=== PATIENT | female | born 1955 | race African-American/Black ===

== ENCOUNTER 2016-07-13 21:31 | Inpatient (IN) | payer MEDICARE, OTHER ==
--- NOTE | ~2016-07-13 | CR72 ---
[facility] A Service of [facility] RADIOLOGY TEXT RESULTS PATIENT: TERESITA MONACO LOCATION: CICCU3 CICCU3-22 : 57 UNIT #: [id number] AGE: [address]: Thien Tompkins MD SEX: F ORDER DR: [id number] [facility] [address] [facility] [address] [place], [place] [address] [id number] MR#: [id number] Acc #: [id number] NAME: TERESITA MONACO : 1955 SEX: F STUDY DATE/TIME: 07/13/2016 22:34 UNIT: CEDOF ROOM: 87279 STUDY DESCRIPTION: CR Chest Single View Portable Attending Physician: Katherin Velasquez M.D. Ordering Physician: Hellen Sarabia M.D. Primary Care Physician: No Primary Care Physician MEDICAL IMAGING REPORT This report is preliminary unless electronic signature is present EXAM Portable chest HISTORY 60-year-old female, shortness of air COMPARISON 10/02/2010 FINDINGS AP portable view of the chest demonstrates marked pulmonary inflation hyperlucency compatible with underlying emphysema. No acute airspace disease or consolidation. No effusions. Multiple parenchymal calcifications and hilar calcifications suggest old granulomas disease. Heart, mediastinum unremarkable. No pneumothorax. Dictated by... Ariel Baldwin M.D. THIS IS AN ELECTRONICALLY VERIFIED REPORT Ariel Baldwin M.D. at 07/15/2016 10:35 PM DANIELA/lamonte TD: 07/14/2016 05:52 JOB #: [id number] MEDICAL IMAGING REPORT Page 1 of 1 COPY
--- NOTE | ~2016-07-13 | US89 ---
[facility] A Service of [facility] RADIOLOGY TEXT RESULTS PATIENT: TERESITA MONACO [facility]-01 : 57 UNIT #: [id number] AGE: [address]: Thien Tompkins MD SEX: F ORDER DR: [id number] [facility] [address] [facility] [place], [place] [address] [id number] I MR#: [id number] Acc #: [id number] NAME: TERESITA MONACO : 1955 SEX: F STUDY DATE/TIME: 07/14/2016 4:41 UNIT: [facility] ROOM: [facility] STUDY DESCRIPTION: US Lower Ext Arterial Exam Attending Physician: Thien Tompkins M.D. Ordering Physician: Katherin Velasquez M.D. Primary Care Physician: No Primary Care Physician MEDICAL IMAGING REPORT This report is preliminary unless electronic signature is present STUDY Lower extremity ankle-brachial indices. DATE OF EXAM 07/14/2016 HISTORY Diabetes with bilateral lower extremity claudication and nail and hair trophic changes and left lower extremity ulcerations for 2 weeks. FINDINGS Brachial pressure is 150 mmHg on the right. Ankle pressure is nonocclusive in the right dorsalis pedis. Left ankle brachial index is 0.69 indicating at least moderate ischemia. Digital pressures are diminished in the feet bilaterally. IMPRESSION Nonocclusive right ankle pressure, left ankle brachial index about 0.69, indicating at least moderate ischemia. Digital pressure is diminished in the feet bilaterally suggesting additional small vessel disease. Dictated by... Manuel Garces M.D. THIS IS AN ELECTRONICALLY VERIFIED REPORT Manuel Garces M.D. at 07/16/2016 3:58 PM JASIEL/jtanner [facility] A Service of [facility] RADIOLOGY TEXT RESULTS PATIENT: TERESITA MONACO LOCATION: [facility] 338-01 : 57 UNIT #: [id number] AGE: [address]: Thien Tompkins MD SEX: F ORDER DR: TD: 07/14/2016 20:44 JOB #: [id number] MEDICAL IMAGING REPORT Page 1 of 1 COPY
--- NOTE | ~2016-07-13 | EKG ---
[id number] NAME: TERESITA MONACO MR#: [id number] SUMMARY Sinus tachycardia with rightward axis and low anterior forces likely related to lead placement. No prior ECG available. Dictated by...
--- NOTE | ~2016-07-13 | HP ---
Unit #: [id number] #: [id number] Patient: TERESITA MONACO [id number] [address] [place], [place] [address] [id number] I MR#: [id number] NAME: TERESITA MONACO ROOM: 72035 Age: 60 Sex: F Admission Date: 07/14/2016 : 1955 Attending Physician: Katherin Velasquez M.D. Primary Care Physician: No Primary Care Physician HISTORY AND PHYSICAL CHIEF COMPLAINT Respiratory failure. HISTORY This 60-year-old female with rheumatoid arthritis, COPD, hypertension, is admitted for respiratory failure. The patient, herself, is only a fair historian. Admits to feeling more short of breath recently. Her daughter told the ER physician that the patient had been turning up her home oxygen. She was brought to this emergency department last evening where her O2 saturation was 98% on 4L, but her initial ABG showed hypoxic, hypercapnic, acute on chronic respiratory failure. The patient currently is on BiPAP. Denies recent cough. She had seen her speedboat operator for a left foot infection and was given Keflex and Bactrim which she is having difficulty swallowing. She is complaining of quite a bit of pain in the left foot and left leg which does appear to be reddened with some open areas over the toes. In reviewing her medications, she is taking hydrocodone. Chest x-ray only shows COPD. PAST MEDICAL HISTORY 1. COPD, on home oxygen. 2. Hypertension. 3. Severe rheumatoid arthritis. 4. Esophageal meat impaction requiring EGD 09/2010. Small hiatal hernia, mild gastritis noted during that time. 5. C-spine surgery. ALLERGIES No known drug allergies. HOME MEDICATIONS 1. Advair 250/50, one puff b.i.d. 2. Albuterol nebulizer. 3. Keflex 500 mg q.i.d., prescribed four days ago. 4. Bactrim DS, one p.o. b.i.d., prescribed four days ago. Again, patient is having difficulty swallowing these pills. 5. [place] 10/325 q.4 hours as needed. 6. Spiriva one puff daily. FAMILY HISTORY Negative for GI disease. SOCIAL HISTORY Unit #: [id number] #: [id number] Patient: TERESITA MONACO The patient states that she lives alone. Was previously a smoker, now smokes occasionally. Does not drink alcohol. REVIEW OF SYSTEMS Difficult to obtain as patient has BiPAP in place. PHYSICAL EXAMINATION GENERAL APPEARANCE: Very thin 60-year-old female who looks older than stated age. VITAL SIGNS: Temperature 98.2, pulse 93, respirations 23, blood pressure 156/77. O2 saturation currently is 99% on FIO2 of 40% on BiPAP. HEENT: Eyes PERRLA. Pharynx - difficult examining the oropharynx given BiPAP. NECK: Supple without adenopathy or thyromegaly. CHEST: Diminished breath sounds. CARDIAC: Normal S1 and S2 without definite murmur. ABDOMEN: Bowel sounds are present. No hepatosplenomegaly, tenderness or masses. EXTREMITIES: Notable for erythema of the distal lower left leg with open areas noted over the first and fourth toes. Foot looks to be cellulitic. Pedal pulses are diminished. Rheumatoid deformities noted over the hands and feet. NEUROLOGIC EXAM: The patient is awake, alert. She seems to be fairly oriented. She does have some asterixis on exam, has equal strength throughout. DIAGNOSTIC STUDIES LABORATORY: Hematocrit is 37.7, normal white count and platelet count. MCV is 104. SMA-7 - chloride 91, CO2 39. BNP is normal. Cardiac markers are negative. ABG - pH 7.285, pCO2 93, pO2 92.8 on 4L per nasal cannula. Repeat ABG - pH 7.31, pCO2 84, O2 saturation 111 on BiPAP 12/6, FIO2 40%, backup rate of 16. IMAGING: Chest x-ray - COPD. CARDIOVASCULAR: EKG - sinus tachycardia, rate 101. Qs noted in V1 and V2. ASSESSMENT 1. Chronic obstructive pulmonary disease exacerbation with acute on chronic hypercapnic/hypoxic respiratory failure. 2. Left foot and leg cellulitis, on Keflex and Bactrim: The patient apparently is having difficulty swallowing Bactrim. 3. History of dysphagia. 4. Rheumatoid arthritis with severe foot and hand deformities noted, previous C-spine surgery. 5. History of hypertension. PLANS 1. Steroids, Duo-Nebs, continue BiPAP and consult pulmonary. 2. Check venous Dopplers of the legs, give IV vancomycin and use Bactroban ointment. 3. DVT and gastritis prophylaxis. Unit #: [id number] #: [id number] Patient: TERESITA MONACO 4. IV fluids and supportive treatment. 5. Hold narcotics while acutely ill. 6. Will ask for a Bonilla catheter placed and obtain UA, urine C and S. 7. Repeat labs in the morning. Critical care time spent in evaluating this patient was 35 minutes. Dictated by Katherin Velasquez M.D. AML/df TD: 07/14/2016 05:22 JOB #: [id number] HISTORY AND PHYSICAL Page 1 of 1 X Katherin Velasquez MD X HISTORY AND PHYSICAL
--- NOTE | ~2016-07-13 | FU ---
[facility] Nutrition Therapy DATE: 07/17/16 Patient: TERESITA MONACO Physician: GIL Address: [address] [place] [address] Room/Bed: [address] [place] [address], Zip: [place] [address] Admit Date: 07/14/16 Date of : 57 Height: 5 2 Weight: 72 32.8 NUTRITION MONITORING/FOLLOW-UP: Reason: Nutrition follow up Anthropometrics: Ht: 62" Adm wt: 32.3 kg BMI: 13.0 IBW: 50 kg, 65% IBW Labs: Cl- 96 Alb 3.1 Meds: Lipitor, protonix I&O's: 1750/1302, last BM 07/16 Skin: Open areas left foot Dry, flaky skin generalized Edema: none noted Estimated Nutrition Needs: Increased due to low body weight Diet: Regular Assessment: Chart reviewed, events noted. RD spoke with the pt at bedside. Pt reports improvement in appetite and PO intake. Pt is reportedly consuming 50% of meals and 100% of Ensure supplement once or twice daily. Pt reports that if she received more seasoning, she would eat more. Pt states that she like the Ensure shakes, and asked about their benefits. RD explained the benefits of Ensure, encouraging the pt to consume at least two per day. RD also suggested smaller, more frequent meals. RD observed pt tray in room, which was consistent with her report of 50% intake. Please see recommendations below. Dx: Inadequate protein-energy intake RT clinical condition AEB 50% intake of meals- IN PROGRESS Underweight RT PMH, poor intake AEB BMI 13.0, 65% IBW- ACTIVE Intervention: 1. Regular diet 2. 6 small meals 3. Ensure TID Monitoring, Evaluation and Goals: 1. PO intake; consume >50% of meals- IN PROGRESS, NOT YET MET 2. Weight; promote gradual weight gain towards healthy BMI- IN PROGRESS (+0.5 kg) [facility] Nutrition Therapy DATE: 07/17/16 Patient: TERESITA MONACO Physician: GIL Address: [address] [place] [address] Room/Bed: [address] [place] [address], Zip: [place] [address] Admit Date: 07/14/16 Date of : [birth year] Height: 5 2 Weight: 72 32.8 3. Skin; promote wound healing- IN PROGRESS Recommendations: 1. Continue regular diet as tolerated, adding 6 small meals to promote increased intake of meals. 2. Ensure chocolate TID- continue. 3. Appreciate staff and family encouraging adequate intake of meals and Ensure supplements. Status: Pt is at mild-moderate nutritional risk. RD will continue to follow up. Respectfully, CHAPIS AGUILAR RD, LD Food and Nutritional Services [facility] cc: client file
--- NOTE | ~2016-07-13 | TOC ---
Unit #: [id number] #: [id number] Patient: TERESITA MONACO [id number] [address] [place], [place] [address] [id number] I MR#: [id number] NAME: TERESITA MONACO ROOM: 338 Age: 60 Sex: F Admission Date: 07/14/2016 : 1955 Attending Physician: Thien Tompikns M.D. Primary Care Physician: No Primary Care Physician TRANSFER OF CARE SUMMARY CHIEF COMPLAINT Shortness of breath. ADMITTING DIAGNOSIS Acute hypoxic respiratory failure. FURTHER DIAGNOSES 1. Ulcer on the left foot. 2. Peripheral vascular disease status post "AIF." CONSULTANTS 1. Dr. Licea. 2. Dr. Kael Brewster with vascular surgery. HISTORY OF PRESENTING ILLNESS The patient is a 60-year-old lady who is very thin. Was brought to the emergency room initially with acute hypoxic respiratory failure. She required BiPAP. She was initially in the ICU. We moved her out of the ICU yesterday. She had an ulcer on the left foot with poor blood supply. We consulted vascular surgery. They are on board. She is doing clinically better from the time of admission. She requires rehab placement per PT and OT recommendations. I spoke with the egg caser, and we are working on trying to get placement for her at this point. Kindly note a final discharge summary will be dictated by me or my colleagues at the time of actual discharge. Dictated by... Sabrina Collins/ganesh TD: 07/17/2016 13:55 JOB #: [id number] Unit #: [id number] #: [id number] Patient: TERESITA MONACO TRANSFER OF CARE SUMMARY Page 1 of 1 X X TRANSFER OF CARE SUMMARY
--- NOTE | ~2016-07-13 | A ---
[facility] Nutrition Therapy DATE: 07/14/16 Patient: TERESITA MONACO Physician: GIL Address: [address] [facility] Room/Bed: [address], Zip: [place] [address] Admit Date: 07/14/16 Date of : [birth year] Height: 5 2 Weight: 71 32.5 NUTRITIONAL ASSESSMENT: REASON: Consult RE: low weight/poor nurition 60 yo female admitted for COPD exacerbation PMH: COPD, HTN, rheumatoid arthritis Anthropometrics: Ht: 5'2" Wt: 32.3 kg (71#) BMI: 13.0 IBW: 110#, 64.5% IBW Labs: Na+ 133, Cl- 90, Gluc 120 Meds: NaCl, Protonix, Solu-medrol, D5% I/O & Bowel function: none noted, last BM unknown Skin Integrity: Open areas (L foot), no edema noted Estimated Nutrition Needs: Increased d/t low weight and wound Assessment: Chart reviewed, events noted. Pt was brought to ER this am d/t COPD exacerbation. Per chart, wound care was consulted d/t L foot ulcer. Per RN, pt is on bipap PRN and nasal cannula when off bipap. Pt is on a regular diet. RD physician internist visited with pt, pt was lethargic during visit. Per RD physician internist, pt consumed 0% of lunch. Pt reported being too tired to eat. RD encouraged adequate protein and calorie intake d/t COPD and foor ulcer. RD encouraged Ensure, pt agreed. See recommendations below. Dx: Inadequate protein-energy intake RT clinical condition AEB consuming 0% of meal. -Underweight RT PMH, poor intake AEB 13.0 BMI, 64.5% IBW. Intervention: 1. Regular diet 2. Ensure TID Monitoring, Evaluation and Goals: 1. PO intake; consume >50% of meals and supplements 2. Weight; promote gradual weight gain towards healthy BMI 3. Skin; promote wound healing Recommendations: 1. Please order chocolate Ensure Enlive TID w/ meals. [facility] Nutrition Therapy DATE: 07/14/16 Patient: TERESITA MONACO Physician: GIL Address: [facility] Room/Bed: [address], Zip: [place] [address] Admit Date: 07/14/16 Date of : [birth year] Height: 5 2 Weight: 71 32.5 2. Appreciate family and staff to encourage adequate calorie and protein intake. 3. Consider adding MVI w/ minerals, 500 mg Vitamin C BID, and 50 mg Zinc x 10 days to promote wound healing. Pt is at a mod/severe nutritional risk. RD will f/u per protocol. Respectfully, Denice Husain, Site Operations Manager Octavia Melchor MS, RD, LD Food and Nutritional Services [facility] cc: client file
--- NOTE | ~2016-07-13 | OR ---
Unit #: [id number] #: [id number] Patient: TERESITA MONACO [id number] [address] [place], [place] [address] [id number] MR#: [id number] NAME: TERESITA MONACO ROOM: [facility] Date of Procedure: 07/17/2016 Admission Date: 07/14/2016 Surgeon: Kael Brewster M.D. : 1955 Attending Physician: Thien Tompkins M.D. OPERATIVE REPORT PROCEDURE PERFORMED 1. Ultrasound-guided access of femoral artery, right. 2. Left superficial femoral artery angioplasty (5 x 100 mm). INDICATIONS FOR PROCEDURE This is a 60-year-old female, who was admitted with COPD exacerbation. She reports a history of nonhealing wound of her left first toe for the past 1-1/2 weeks. Apparently, the daughter says that she dropped a can of tomatoes on her foot and has been trying to get the wound to heal on her own at home. She had ABIs, which demonstrated a left JIM of 0.69 of the posterior tibial, and only JIM of 0.3 of the left dorsalis pedis. The waveforms of the posterior tibial were biphasic, whereas the dorsalis pedis waveforms were flat. The digital pressure was 58, with a toe index of 0.39. On exam, she had a superficial wound along the dorsal aspect of her first toe. There was no erythema or drainage. It was painful for her. I talked to the patient about doing an angiogram. I discussed with her the risks and benefits of the procedure. The risks include, but are not limited to, access site bleeding, injury to the blood vessels, recurrence of disease, contrast-induced nephropathy, and need for further procedures. The primary benefit of the procedure would be to assess her arterial vasculature, and if there was a treatable disease, to open it up with a balloon or stent, so as to maximize her inflow and promote wound healing. She expressed understanding, and elected to proceed. I also discussed the above with her daughter. PREOPERATIVE DIAGNOSIS Atherosclerosis with ulceration. POSTOPERATIVE DIAGNOSIS Atherosclerosis with ulceration. DESCRIPTION OF PROCEDURE After informed consent was obtained, the patient was brought to the Interventional Radiology suite. The patient's pre-sedation history and examination revealed an ASA physical status of 3. She has fasted for at least 6 hours. She had denied any family history for adverse anesthetic or sedative reaction, she had dentures which were removed, normal neck mobility, and no other identified contraindication of sedation. Risks and benefits, and alternatives were discussed with the patient, who desired to proceed. The blood pressure, heart rate, and oxygen saturation monitors, constant Unit #: [id number] #: [id number] Patient: TERESITA MONACO nursing observation and direct attending supervision. The patient received a total of 1 mg of Versed, and 25 mg of fentanyl, achieving appropriate level of sedation. Total sedation time and llyo-eg-xhcu time was 90 minutes. The patient was subsequently observed with serial examinations until the return of pre-sedation mental status. The patient remained hemodynamically stable with normal oxygenation, saturations, and vital signs with no complications during the procedure or recovery. The patient's both groins were prepped and draped in standard fashion. Using fluoroscopy, I identified the lower third of the femoral head. I also used ultrasound to identify the femoral bifurcation, using ultrasound guidance, I infiltrated 1% lidocaine into the skin. The common femoral artery was very superficial in relation to her skin. Then using ultrasound, I accessed the femoral artery on the right side with a micro-needle, I advanced a micro Glidewire, and confirmed my position in iliac artery with fluoroscopy. I then exchanged out my micro-needle for a 4-Greenlandic micro-sheath catheter using Seldinger technique. I then advanced a starter wire up into the aorta, and exchanged out my micro-sheath catheter for 4-Greenlandic sheath. I then advanced the Omni Flush catheter up into the aorta and did an abdominal aortogram, 20 mL/sec for 20 mL total. This demonstrated widely patent right and left renal arteries. There was a patent inferior mesenteric artery. There was no significant aortoiliac disease. The iliac arteries on the right and left, did appear somewhat diseased, but there was no significant stenosis or obstruction. I then attempted to go up and over the aortic bifurcation with an Omni Flush catheter. There must have been some tortuosity at the aortic bifurcation, as my attempts were unsuccessful. I changed out to a Omni SOS catheter, and I was able to advance a stiff-angled Glidewire into the left external iliac artery, but was unable to advance the catheter any further beyond the left common iliac artery. I then exchanged out my Omni Flush catheter, for a 4-Greenlandic angled glide catheter, so we take the aortic bifurcation tortuosity more smoothly. The patient was complaining of some pain, and with my catheter engaged in the left common iliac artery, I shot a hand injection which demonstrated extravasation. I then pulled back my catheter with serial angiograms until I was back intraluminal in the left common iliac artery. I then exchanged out my stiff angled Glidewire for a floppy glidewire. I advanced my floppy Glidewire into the common femoral artery, and was then able to advance the stiff angled glide catheter into the common femoral artery as well. I performed the hand injection to confirm that I was still intraluminal in the left common femoral artery. I then exchanged out my floppy glidewire back to the stiff-angled Glidewire, and placed in the superficial femoral artery. I then exchanged out my glide catheter, and then the 5-Greenlandic sheath catheter, which had been placed with the Omni SOS catheter and advanced a 6-Greenlandic [place] Destination Sheath up and over, while it was visualized under fluoroscopy. This [place] Destination sheath was engaged in the left common femoral artery. I then performed a hand injections of the left lower extremity. This demonstrated no significant disease of the left common femoral artery bifurcation. The proximal aspect of the left superficial femoral artery was widely patent with no significant disease. At the mid/distal portion of the superficial femoral artery, there was a 90% stenosis, the posterior tibial artery was widely patent, the tibioperoneal trunk had some mild disease, but no significant stenosis or occlusion. The anterior tibial artery was occluded, with no runoff. The posterior tibial artery and peroneal artery both were widely patent, both with pedal runoff to the foot. Unit #: [id number] #: [id number] Patient: TERESITA MONACO At this point, I elected to treat the superficial femoral artery stenosis. I marked the lesion under roadmapping, and then it was able to advance my stiff-angled Glidewire into the popliteal artery. I then deployed a 5 x 100 mm Comer balloon, which was inflated to nominal pressure for 2 minutes. I then desufflated the balloon and shot completion angiogram, which demonstrated resolution of the stenosis. There was still a mild 20% recoil at the distal aspect of the lesion, but it was not flow limiting. I then performed more magnified views of the tibioperoneal trunk, which again did identify some mild disease, but again no significant stenosis or obstruction, and there was brisk flow down to the posterior tibial artery and peroneal artery. As a result, I elected to not treat this lesion. I then removed my stiff-angled Glidewire, and pulled back my [place] Destination Sheath over the wire. With the tip of the sheath in the left common iliac artery, I performed a right angled oblique view, to confirm that there was no active extravasation of the iliac arteries. This hand injection was performed, and it did not demonstrate any active extravasation. I then performed a right angled oblique view of the right common femoral artery to assess adequacy for percutaneous closure. It was a good stick, as a result I changed out my [place] Destination Sheath over the wire for a 6-Greenlandic regular sheath. I then deployed a Mynx device, however, because the patient was so skinny, the plug within the soft tissue was outside the skin. As a result, I removed the Mynx closure device, and held manual pressure for 20 minutes. The patient had received 3000 units of heparin when I placed a 6-Greenlandic Park [place] Destination Sheath. Approximately 50 minutes had transpired since then, and I gave the patient 10 units of protamine. There was no active bleeding from the right groin site after 20 minutes of manual pressure. Contrast used was 80 mL, fluoro time was 15.9 minutes. Total sedation time was 90 minutes. At the end of the case, all counts were correct and I was present for the entire duration of the procedure. ESTIMATED BLOOD LOSS 20 mL. FINDINGS 1. Patent bilateral renal arteries. 2. No significant aortic disease. 3. Mildly diffuse iliac artery disease bilaterally, but no significant occlusion or stenosis. 4. Widely patent left femoral bifurcation. 5. Superficial femoral artery was widely patent proximally, had a 90% stenosis at the midportion, with 50% stenosis proximally and distally to this lesion. 6. Popliteal artery was widely patent. 7. Anterior tibial artery highly stenotic at its takeoff from the popliteal artery, with chronic occlusion and no distal outflow or reconstitution. 8. Tibial peroneal trunk with mildly diffuse disease, but no significant stenosis or occlusion. 9. Posterior tibial artery widely patent with no significant disease and runoff to the plantars. 10. Peroneal artery widely patent with no significant disease with good Unit #: [id number] #: [id number] Patient: TERESITA MONACO pedal outflow. SPECIMENS None. COMPLICATIONS None. Dictated by... Sabrina Carney TD: 07/18/2016 04:10 JOB #: [id number] OPERATIVE REPORT Page 1 of 1 X X PROCEDURE OPERATIVE NOTE
--- NOTE | ~2016-07-13 | CO ---
Unit #: [id number] #: [id number] Patient: TERESITA MONACO [id number] [address] [place], [place] [address] [id number] MR#: [id number] NAME: TERESITA MONACO ROOM: [facility] Age: 60 Sex: F Admission Date: 07/14/2016 : 1955 Attending Physician: Thien Tompkins M.D. Primary Care Physician: Barby Primary Care Physician Consultation Date: 07/15/2016 CONSULTATION REPORT REASON FOR CONSULTATION Poor peripheral pulses. HISTORY OF PRESENT ILLNESS This is a 60-year-old female with a history of hypertension, rheumatoid arthritis and COPD on home oxygen, who was admitted to the ICU for COPD exacerbation and respiratory distress. She is also complaining of some left foot and leg pain. She states that she has had no history of with walking previously. She is not a very good historian so I am not sure how reliable her information is. She denies any history of leg infections, left wounds, or legs surgeries. She states that she has had a wound on her left first toe for the past week. It hurts when it "dries out." She states that she was scheduled to see a foot doctor, but was admitted to the hospital for her breathing issues. PAST MEDICAL HISTORY Hypertension, rheumatoid arthritis, COPD. PAST SURGICAL HISTORY None. ALLERGIES NKDA. MEDICATIONS Advair, albuterol, Jonancy, and Spiriva. FAMILY HISTORY Denies any known bleeding disorders, clotting disorders or aneurysms. SOCIAL HISTORY Reportedly lives alone. Current smoker. Denies any ETOH. REVIEW OF SYSTEMS CONSTITUTIONAL: No fevers. No chills. ENT: No ear pain, tinnitus or sore throat. RESPIRATIONS: Positive for shortness of breath. Positive cough. CARDIOVASCULAR: Denies any chest pain or palpitations. GI: Denies any nausea, vomiting or diarrhea. : Denies any hematuria. HEME: Denies any easy bruising. ENDOCRINE: Denies any excessive thirst or hunger. MUSCULOSKELETAL: Denies any back pain or neck pain. INTEGUMENTARY: Denies any rash or pruritus. Unit #: [id number] #: [id number] Patient: TERESITA MONACO PHYSICAL EXAMINATION VITALS: Temperature is 97.6, heart rate 112, blood pressure 120/86, respirations 20. Oxygen 100% on 4 L. CONSTITUTIONAL: Well appearing, but frail, looks much older than her stated age. HEENT: Eyes, no scleral icterus. NECK: No JVD or carotid bruit. LYMPH: No lymphadenopathy in his neck or groins. CARDIOVASCULAR: Tachycardic. PULSE: 2+ femoral pulses bilaterally. Monophasic DP and PT pulses bilaterally. RESPIRATIONS: Nonlabored. GI: Soft, nontender, nondistended. SKIN: Ulceration of the left first toe approximately 3 x 2 cm, dry, no erythema, no drainage. PSYCH: Normal mood and affect. DIAGNOSTIC STUDIES LABORATORY DATA: WBC 6.0, hematocrit 33.8, platelets 139, sodium 136, potassium 4.0, chloride 94, CO2 36, BUN 13, creatinine 0.6, glucose 96. IMAGING STUDIES: JIM - DP cannot be obtained, posterior tibial pressure 114, ankle-brachial index 0.76. Left dorsalis pedis pressure 57, ankle-brachial index 0.38, posterior tibial pressure 104, JIM 0.69, left digital pressure 58, with a toe index of 0.39. Bilateral lower extremity venous duplex demonstrated no evidence of a DVT. ASSESSMENT 60-year-old female with atherosclerosis with ulcerations of the left first toe. It is hard to get a good history from her, whether or not she has rest pain versus claudication versus just a nonhealing ulceration. It appears that she does have peripheral vascular disease, with diminished circulation based on her ABIs. Her ABIs are consistent with moderate arterial insufficiency. Given this finding in the setting of a nonhealing wound, I do think she would benefit from a left leg angiogram, for evaluation, and possible intervention. I will attempt to schedule this for Wednesday, assuming that she is otherwise stable with her other medical issues. In terms of medication she also should probably be started on aspirin, as well as Lipitor. Aspirin for antiplatelet therapy, and Plavix for LDL control. Dictated by... Kael Brewster M.D. Landon TD: 07/15/2016 12:36 JOB #: [id number] Unit #: [id number] #: [id number] Patient: TERESITA MONAOC CONSULTATION REPORT Page 1 of 1 X X CONSULTATION REPORT
--- NOTE | ~2016-07-13 | EKG ---
PATIENT: TERESITA MONACO UNIT #: [id number] Ventricular Rate: 101 BPM Atrial Rate: 101 BPM P-R Interval: 144 ms QRS Duration: 74 ms Q-T Interval: 350 ms QTC Calculation(Bezet): 453 ms P Ruby: 88 degrees Calculated R Ruby: 93 degrees Calculated T Ruby: 55 degrees Diagnosis Line: SINUS TACHYCARDIA WITH RIGHTWARD AXIS AND LOW Diagnosis Line: ANTERIOR FORCES LIKELY RELATED TO LEAD PLACEMENT. Diagnosis Line: NO PRIOR ECG AVAILABLE. Diagnosis Line: Confirmed by GIOVANI BOLES MD ([id number]), video tape editor Diagnosis Line: SARA PARKINSON ([id number]) on 07/16/2016 8:27:19 AM INTERPRETING MD: ELVI GONZALEZ
--- NOTE | ~2016-07-13 | CT57 ---
[facility] A Service of [facility] RADIOLOGY TEXT RESULTS PATIENT: TERESITA MONACO LOCATION: [address] : [birth year] UNIT #: [id number] AGE: [address]: Thien Tompkins MD SEX: F ORDER DR: [id number] [place] [id number] [facility]. [place], [place] [address] [id number] I MR#: [id number] Acc #: [id number] NAME: TERESITA MONACO : 1955 SEX: F STUDY DATE/TIME: 07/14/2016 14:33 UNIT: [facility] ROOM: [facility] STUDY DESCRIPTION: CT Chest Wo Cont Attending Physician: Thien Tompkins M.D. Ordering Physician: Rosalee Licea M.D. Primary Care Physician: No Primary Care Physician MEDICAL IMAGING REPORT This report is preliminary unless electronic signature is present EXAM CT chest without contrast. HISTORY Shortness of air since yesterday. Acute CHF. TECHNIQUE This CT exam was performed with one or more of the following radiation dose reduction techniques: automatic exposure control, adjustment of mA and/or kV according to patient size, and iterative reconstruction. FINDINGS CT chest without contrast demonstrates severe bilateral emphysema throughout both lungs. Mild scattered linear fibrotic scarring bilaterally. Multiple small calcified granulomas in both lungs. No airspace infiltrates. No pleural effusions. Incidental calcified bilateral hilar nodes. No adenopathy. Normal caliber thoracic aorta. IMPRESSION 1. Advanced bilateral emphysema. 2. No evidence of active disease in the lungs. 3. Multiple incidental calcified granulomas in both lungs and incidental calcified bilateral hilar nodes. Dictated by... Alex Duran M.D. THIS IS AN ELECTRONICALLY VERIFIED REPORT Alex Duran M.D. at 07/14/2016 5:16 PM DFL/joselyn [facility] A Service of [facility] RADIOLOGY TEXT RESULTS PATIENT: TERESITA MONACO LOCATION: [address] : [birth year] UNIT #: [id number] AGE: [address]: Thien Tompkins MD SEX: F ORDER DR: TD: 07/14/2016 17:04 JOB #: [id number] MEDICAL IMAGING REPORT Page 1 of 1 COPY
--- NOTE | ~2016-07-13 | DS ---
Unit #: [id number] #: [id number] Patient: TERESITA MONACO [id number] [address] [place], [place] [address] [id number] I MR#: [id number] NAME: TERESITA MONACO ROOM: 338 Age: 60 Sex: F Admission Date: 07/14/2016 : 1955 Discharge Date: 07/20/2016 Attending Physician: Thien Tompkins M.D. Primary Care Physician: No Primary Care Physician DISCHARGE SUMMARY NOTE: Kindly note I did an interim discharge summary on the 12. This is an addendum to the discharge summary. ADDENDUM The patient is doing clinically better, and I spoke with the correctional counselor/case manager. She does have a bed for her in rehab on the third floor, and she will arrange for her discharge today. PHYSICAL EXAMINATION ON THE DAY OF DISCHARGE VITAL SIGNS: Temperature 98.1, pulse rate 85, respirations 16, blood pressure 99/61. GENERAL: The patient is thin, alert, oriented x3, lying in bed, no acute distress. HEENT: Normocephalic, atraumatic. No icterus. PERRLA. Extraocular muscles intact. CHEST: Bilateral equal air entry. Clear to auscultation. ABDOMEN: Soft. LOWER EXTREMITIES: Small ulcer on the left foot. Poor peripheral pulses. DISCHARGE MEDICATIONS 1. Medrol Dosepak. 2. Albuterol inhalation q.6 p.r.n. shortness of breath, 3 mL nebulization q.4 p.r.n. shortness of breath. 3. Tylenol p.r.n. 4. Bactroban to be applied topically on the feet b.i.d. 5. Spiriva 18 mcg daily. 6. Heparin 5,000 units t.i.d. 7. Dulera 200 mcg/5 mcg inhalation 2 puffs b.i.d. 8. Tenormin 25 mg daily. 9. Atrac-Tain cream to be applied topically b.i.d. 10. Lipitor 20 mg at bedtime. 11. Aspirin 81 mg daily. 12. Naproxen 220 mg p.o. b.i.d. p.r.n. pain. 13. Tramadol 50 mg q.6 p.r.n. pain. 14. Protonix 40 mg daily. 15. Baclofen 10 mg t.i.d. 16. Doxycycline 100 mg p.o. for 3 more days. 17. Medrol Dosepak. FOLLOWUP She is instructed to follow with her primary care and with pulmonary in 1-2 weeks. NOTE: Total time spent in her care - 35 minutes. Unit #: [id number] #: [id number] Patient: TERESITA MONACO Dictated by... Sabrina Collins/ganesh TD: 07/20/2016 12:35 JOB #: [id number] DISCHARGE SUMMARY Page 1 of 1 X X DISCHARGE SUMMARY
--- NOTE | ~2016-07-13 | US84 ---
[id number] [facility] [address] [facility]. [place], [place] [address] [id number] I MR#: [id number] Acc #: [id number] NAME: TERESITA MONACO : 1955 SEX: F STUDY DATE/TIME: 07/14/2016 10:05 UNIT: [facility] ROOM: [facility] STUDY DESCRIPTION: US LE Veins Complete Chencho Stdy Attending Physician: Thien Tompkins M.D. Ordering Physician: Katherin Velasquez M.D. Primary Care Physician: No Primary Care Physician MEDICAL IMAGING REPORT This report is preliminary unless electronic signature is present EXAM Bilateral leg vein Doppler, 07/14/2016. INDICATIONS Bilateral leg pain for 1 week. TECHNIQUE Venous ultrasound examination of both lower extremities was performed using grayscale, spectral Doppler and color flow Doppler imaging. FINDINGS The examination is negative. There is no evidence of deep venous thrombus from the groin to the lower calf bilaterally. Visualized greater saphenous veins are also patent. IMPRESSION Negative examination. No evidence of lower extremity deep venous thrombosis. Dictated by... Brennon Cardenas Jr., M.D. THIS IS AN ELECTRONICALLY VERIFIED REPORT Brennon Cardenas Jr., M.D. at 07/14/2016 4:48 PM KALEB/luis TD: 07/14/2016 11:28 JOB #: [id number] MEDICAL IMAGING REPORT Page 1 of 1 COPY
--- NOTE | ~2016-07-13 | CO ---
Unit #: [id number] #: [id number] Patient: TERESITA MONACO [id number] [address] [place], [place] [address] [id number] I MR#: [id number] NAME: TERESITA MONACO ROOM: [facility] Age: 60 Sex: F Admission Date: 07/14/2016 : 1955 Attending Physician: Thien Tompkins M.D. Primary Care Physician: No Primary Care Physician CONSULTATION REPORT REASON FOR CONSULTATION Critical care management. CHIEF COMPLAINT Shortness of breath. HISTORY OF PRESENT ILLNESS A 60-year-old female with past medical history of rheumatoid arthritis, COPD, hypertension admitted with a complaint of cough, shortness of breath and was found to be in respiratory failure. I am seeing the patient at bedside currently. Denies any headache, blurry vision. No chest pain. REVIEW OF SYSTEMS Positive for pallor. No edema. No cyanosis or jaundice. PAST MEDICAL HISTORY 1. COPD on home oxygen. 2. Hypertension. 3. C-spine surgery. ALLERGIES No known drug allergies. MEDICATIONS 1. Advair. 2. Albuterol. 3. Keflex. 4. Bactrim. 5. [place]shoe. 6. Spiriva. FAMILY HISTORY Negative for GI disease. PHYSICAL EXAMINATION VITAL SIGNS: Temperature 98, pulse 87, respirations 12, blood pressure 130/70. NEUROLOGIC: Awake, alert, oriented. No neuro deficit. HEENT: PERRLA plus 1. NECK: Supple. No JVD. CHEST: Bilateral air entry. Bilateral mild rhonchi. GASTROINTESTINAL: Nontender. Soft. Bowel sounds positive. EXTREMITIES: No edema. Unit #: [id number] #: [id number] Patient: TERESITA MONACO DIAGNOSTIC STUDIES Labs and imaging have been reviewed. ASSESSMENT 1. Acute hypoxic hypercapnic respiratory failure. 2. Acute exacerbation of chronic obstructive pulmonary disease for cellulitis and rheumatoid arthritis. PLAN Plan is to continue patient on IV steroids, BiPAP, bronchodilator, IV antibiotics, gastrointestinal and deep venous thrombosis prophylaxis, wound care. Patient will be closely monitored. Please see orders for detailed plan. Thank you very much for this consultation. Dictated by... Sabrina Mcduffie TD: 07/15/2016 16:18 JOB #: [id number] CONSULTATION REPORT Page 1 of 1 X Rosalee Licea MD CONSULTATION REPORT
--- NOTE | ~2016-07-13 | CR72 ---
[facility] A Service of [facility] RADIOLOGY TEXT RESULTS PATIENT: TERESITA MONACO LOCATION: [address] : [birth year] UNIT #: [id number] AGE: [address]: Thien Tompkins MD SEX: F ORDER DR: [id number] [facility] [address] [facility]. [place], [place] [address] [id number] I MR#: [id number] Acc #: [id number] NAME: TERESITA MONACO : 1955 SEX: F STUDY DATE/TIME: 07/15/2016 4:17 UNIT: [facility] ROOM: [facility] STUDY DESCRIPTION: CR Chest Single View Portable Attending Physician: Thien Tompkins M.D. Ordering Physician: Rosalee Licea M.D. Primary Care Physician: Primary Care Physician No MEDICAL IMAGING REPORT This report is preliminary unless electronic signature is present EXAM Portable chest HISTORY Respiratory failure, left foot infection. History of RA. COMPARISON 07/13/2016 FINDINGS Portable view of the chest demonstrates pulmonary hyperinflation with hyperlucency particularly in the lung apices compatible with underlying emphysema. Scattered parenchymal calcifications compatible old granulomatous disease. No acute airspace disease or consolidation. No effusions. Heart and mediastinum unremarkable. No pneumothorax. Dictated by... Ariel Baldwin M.D. THIS IS AN ELECTRONICALLY VERIFIED REPORT Ariel Baldwin M.D. at 07/15/2016 10:33 PM DANIELA/jayme TD: 07/15/2016 05:20 JOB #: [id number] MEDICAL IMAGING REPORT Page 1 of 1 COPY
[~2016-07-13 21:31] MED LIST: DICLOFENAC PO; VICODIN 5/1 TAB 5/50 PO; ZANAFLEX4 M1 PO
[2016-07-13 22:52] LABS: BASOPHIL% 0.6 % (0-2.5); EOSINOPHIL% 0.7 % (0.0-7.0); HEMATOCRIT 37.7 % (35.0-45.0); HEMOGLOBIN 11.9 gm/dL (12.0-16.0); LYMPHOCYTE# 0.7 X10e3 (1.0-3.5); LYMPHOCYTE% 12.8 % (17.0-45.0); MEAN CELL VOLUME 104.1 FL (83-96); MEAN CORPUSCULAR HEMOGLOBIN 32.8 PG (28-34); MEAN CORPUSCULAR HGB CONC 31.6 g/dL (30-36); MEAN PLATELET VOLUME 9.4 FL (6.5-11.5); MONOCYTE# 0.4 X10e3 (0-1.0); MONOCYTE% 7.6 % (3.0-12.0); NEUTROPHIL# 4.1 X10e3 (1.5-7.1); NEUTROPHIL% 78.3 % (40-75); PLATELET COUNT 153 X10e3 (140-420); RED BLOOD COUNT 3.62 X10e (3.90-5.30); RED CELL DISTRIBUTION WIDTH 12.6 % (11.0-15.5); WHITE BLOOD COUNT 5.2 X10e3 (4.0-10.5)
[2016-07-13 22:54] LABS: DIFF IND NO
[2016-07-13 22:56] LABS: POC - CKMB 11.8 ng/mL (0.0-7.9); POC - TROPONIN <0.05 ng/mL (<=0.05)
[2016-07-13 23:13] LABS: BUN/CREATININE RATIO 18.33; CALCIUM SERUM 9.2 mg/dL (8.4-10.2); CREATININE SERUM 0.6 mg/dL (0.6-1.4); GLOM FILT RATE Estimated 115.6 mL/min (>60); POTASSIUM 4.7 mmol/L (3.5-5.1)
[2016-07-13 23:56] LABS: ARTERIAL BLD GAS O2 SATURATION 95.7 % (90.0-100.0); ARTERIAL BLOOD GAS CARBOXY HB 0.5 %sat (0.0-9.0); ARTERIAL BLOOD GAS HCO3 44.2 mmol/L; ARTERIAL BLOOD GAS MET HB 0.8 %sat (0.0-2.0); ARTERIAL BLOOD GAS PO2 92.8 mmHg (80.0-100); ARTERIAL BLOOD GAS pH 7.285 (7.350-7.450)
[2016-07-13 23:59] LABS: ARTERIAL BLOOD GAS PCO2 92.9 mmHg (35.0-45.0)
[2016-07-14] LABS: ARTERIAL BLOOD GAS ALLEN TEST NORMAL; ARTERIAL BLOOD GAS ART SITE RIGHT RADIAL; ARTERIAL BLOOD GAS DELIVERY NASAL CANNULA; ARTERIAL DRAW? YES
[2016-07-14 01:45] LABS: ARTERIAL BLD GAS O2 SATURATION 96.3 % (90.0-100.0); ARTERIAL BLOOD GAS CARBOXY HB 0.6 %sat (0.0-9.0); ARTERIAL BLOOD GAS HCO3 42.2 mmol/L; ARTERIAL BLOOD GAS MET HB 1.5 %sat (0.0-2.0); ARTERIAL BLOOD GAS pH 7.308 (7.350-7.450)
[2016-07-14 01:50] LABS: ARTERIAL BLOOD GAS ALLEN TEST NORMAL; ARTERIAL BLOOD GAS ART SITE RIGHT RADIAL; ARTERIAL BLOOD GAS PCO2 84.2 mmHg (35.0-45.0); ARTERIAL DRAW? YES
[2016-07-14 02:21] LABS: URINE SOURCE CLEAN CATCH
[2016-07-14 02:24] LABS: URINE APPEARANCE CLEAR; URINE BILIRUBIN NEG (NEG); URINE BLOOD NEG (NEG); URINE COLOR YELLOW; URINE GLUCOSE NEG (NEG); URINE KETONE NEG (NEG); URINE LEUKOCYTE ESTERASE NEG (NEG); URINE NITRATE NEG (NEG); URINE PH 6.5 (5-8); URINE PROTEIN NEG (NEG); URINE SPECIFIC GRAVITY 1.012 (1.003-1.035)
[2016-07-14 02:28] LABS: CULTURE INDICATED? NO
[2016-07-14 05:05] LABS: ARTERIAL BLD GAS O2 SATURATION 97.5 % (90.0-100.0); ARTERIAL BLOOD GAS CARBOXY HB 0.4 %sat (0.0-9.0); ARTERIAL BLOOD GAS HCO3 41.3 mmol/L; ARTERIAL BLOOD GAS pH 7.359 (7.350-7.450)
[2016-07-14 05:09] LABS: ARTERIAL BLOOD GAS ALLEN TEST NORMAL; ARTERIAL BLOOD GAS ART SITE RIGHT RADIAL; ARTERIAL BLOOD GAS PCO2 73.3 mmHg (35.0-45.0); ARTERIAL DRAW? YES
[2016-07-14 05:52] LABS: BASOPHIL% 0.1 % (0-2.5); HEMATOCRIT 32.2 % (35.0-45.0); HEMOGLOBIN 10.1 gm/dL (12.0-16.0); LYMPHOCYTE# 0.2 X10e3 (1.0-3.5); LYMPHOCYTE% 3.2 % (17.0-45.0); MEAN CELL VOLUME 103.1 FL (83-96); MEAN CORPUSCULAR HEMOGLOBIN 32.4 PG (28-34); MEAN CORPUSCULAR HGB CONC 31.4 g/dL (30-36); MEAN PLATELET VOLUME 9.5 FL (6.5-11.5); MONOCYTE# 0.1 X10e3 (0-1.0); MONOCYTE% 1.2 % (3.0-12.0); NEUTROPHIL# 5.7 X10e3 (1.5-7.1); NEUTROPHIL% 95.5 % (40-75); PLATELET COUNT 142 X10e3 (140-420); RED BLOOD COUNT 3.12 X10e (3.90-5.30); RED CELL DISTRIBUTION WIDTH 12.4 % (11.0-15.5)
[2016-07-14 05:55] LABS: DIFF IND NO
[2016-07-14 06:34] LABS: ALBUMIN SERUM 3.5 g/dL (3.5-5.0); BILIRUBIN,TOTAL 0.6 mg/dL (0.2-2.0); BUN/CREATININE RATIO 15.71; CALCIUM SERUM 8.8 mg/dL (8.4-10.2); CREATININE SERUM 0.7 mg/dL (0.6-1.4); GLOM FILT RATE Estimated 109.9 mL/min (>60); POTASSIUM 4.5 mmol/L (3.5-5.1); PROTEIN TOTAL SERUM 7.1 g/dL (6.0-8.3)
[2016-07-14] MEDS ORDERED: ADVAIR 250-501 EAC1 INH (09:42)
[2016-07-14] MEDS ORDERED: ALBUTEROL2.5 MG/3 M INH (09:43)
[2016-07-14] MEDS ORDERED: TENORMIN25 MG PO (09:43)
[2016-07-14] MEDS ORDERED: LIORESAL10 MG PO (09:44)
[2016-07-14] MEDS ORDERED: KEFLEX500 MG PO (09:45)
[2016-07-14] MEDS ORDERED: LORTAB 10-3251 EACH PO (09:45)
[2016-07-14] MEDS ORDERED: MELOXICAM7.5 MG PO (09:46)
[2016-07-14] MEDS ORDERED: SPIRIVA18 MCG INH (09:47)
[2016-07-14] MEDS ORDERED: ALEVE220 M1 PO (09:47)
[2016-07-14] MEDS ORDERED: ALBUTEROL17 GM INH (09:48)
[2016-07-14] MEDS ORDERED: SULFAMETHOXAZO1 EAC1 PO (09:48)
[2016-07-14 11:47] LABS: ARTERIAL BLD GAS O2 SATURATION 98.7 % (90.0-100.0); ARTERIAL BLOOD GAS CARBOXY HB 0.4 %sat (0.0-9.0); ARTERIAL BLOOD GAS MET HB 0.9 %sat (0.0-2.0); ARTERIAL BLOOD GAS pH 7.329 (7.350-7.450)
[2016-07-14 11:49] LABS: ARTERIAL BLOOD GAS ALLEN TEST NORMAL; ARTERIAL BLOOD GAS ART SITE RIGHT RADIAL; ARTERIAL BLOOD GAS DELIVERY NASAL CANNULA; ARTERIAL BLOOD GAS PCO2 81.9 mmHg (35.0-45.0); ARTERIAL DRAW? YES
[2016-07-15 04:08] LABS: ARTERIAL BLD GAS O2 SATURATION 92.5 % (90.0-100.0); ARTERIAL BLOOD GAS CARBOXY HB 0.8 %sat (0.0-9.0); ARTERIAL BLOOD GAS HCO3 39.7 mmol/L; ARTERIAL BLOOD GAS MET HB 0.7 %sat (0.0-2.0)
[2016-07-15 04:18] LABS: ARTERIAL BLOOD GAS ALLEN TEST NORMAL; ARTERIAL BLOOD GAS ART SITE RIGHT RADIAL; ARTERIAL BLOOD GAS DELIVERY NASAL CANNULA; ARTERIAL BLOOD GAS PCO2 61.3 mmHg (35.0-45.0); ARTERIAL BLOOD GAS PO2 63.2 mmHg (80.0-100); ARTERIAL DRAW? YES
[2016-07-15 05:30] LABS: BASOPHIL% 0.2 % (0-2.5); HEMATOCRIT 33.8 % (35.0-45.0); HEMOGLOBIN 10.7 gm/dL (12.0-16.0); LYMPHOCYTE# 0.8 X10e3 (1.0-3.5); LYMPHOCYTE% 13.8 % (17.0-45.0); MEAN CELL VOLUME 102.5 FL (83-96); MEAN CORPUSCULAR HEMOGLOBIN 32.3 PG (28-34); MEAN CORPUSCULAR HGB CONC 31.5 g/dL (30-36); MEAN PLATELET VOLUME 9.6 FL (6.5-11.5); MONOCYTE# 0.7 X10e3 (0-1.0); MONOCYTE% 11.4 % (3.0-12.0); NEUTROPHIL# 4.5 X10e3 (1.5-7.1); NEUTROPHIL% 74.6 % (40-75); PLATELET COUNT 139 X10e3 (140-420); RED BLOOD COUNT 3.29 X10e (3.90-5.30); RED CELL DISTRIBUTION WIDTH 12.3 % (11.0-15.5)
[2016-07-15 05:36] LABS: DIFF IND NO
[2016-07-15 06:31] LABS: ALBUMIN SERUM 3.1 g/dL (3.5-5.0); BILIRUBIN,TOTAL 0.4 mg/dL (0.2-2.0); BUN/CREATININE RATIO 21.66; CALCIUM SERUM 8.9 mg/dL (8.4-10.2); CREATININE SERUM 0.6 mg/dL (0.6-1.4); GLOM FILT RATE Estimated 115.6 mL/min (>60); PROTEIN TOTAL SERUM 6.9 g/dL (6.0-8.3)
[2016-07-16 05:14] LABS: HEMATOCRIT 35.9 % (35.0-45.0); HEMOGLOBIN 11.3 gm/dL (12.0-16.0); LYMPHOCYTE# 0.3 X10e3 (1.0-3.5); LYMPHOCYTE% 5.1 % (17.0-45.0); MEAN CORPUSCULAR HEMOGLOBIN 32.5 PG (28-34); MEAN CORPUSCULAR HGB CONC 31.5 g/dL (30-36); MEAN PLATELET VOLUME 9.8 FL (6.5-11.5); MONOCYTE# 0.3 X10e3 (0-1.0); MONOCYTE% 4.8 % (3.0-12.0); NEUTROPHIL# 5.4 X10e3 (1.5-7.1); NEUTROPHIL% 90.1 % (40-75); PLATELET COUNT 125 X10e3 (140-420); RED BLOOD COUNT 3.48 X10e (3.90-5.30); RED CELL DISTRIBUTION WIDTH 12.6 % (11.0-15.5)
[2016-07-16 05:23] LABS: DIFF IND NO
[2016-07-16 05:45] LABS: BILIRUBIN,TOTAL 0.4 mg/dL (0.2-2.0); CALCIUM SERUM 8.8 mg/dL (8.4-10.2); CREATININE SERUM 0.5 mg/dL (0.6-1.4); GLOM FILT RATE Estimated 122.8 mL/min (>60); POTASSIUM 3.9 mmol/L (3.5-5.1); PROTEIN TOTAL SERUM 6.7 g/dL (6.0-8.3)
[2016-07-17 06:15] LABS: BASOPHIL% 0.3 % (0-2.5); EOSINOPHIL% 0.1 % (0.0-7.0); HEMOGLOBIN 11.4 gm/dL (12.0-16.0); LYMPHOCYTE# 0.9 X10e3 (1.0-3.5); LYMPHOCYTE% 16.8 % (17.0-45.0); MEAN CELL VOLUME 102.7 FL (83-96); MEAN CORPUSCULAR HEMOGLOBIN 32.6 PG (28-34); MEAN CORPUSCULAR HGB CONC 31.8 g/dL (30-36); MEAN PLATELET VOLUME 9.7 FL (6.5-11.5); MONOCYTE# 0.3 X10e3 (0-1.0); MONOCYTE% 6.3 % (3.0-12.0); NEUTROPHIL# 4.1 X10e3 (1.5-7.1); NEUTROPHIL% 76.5 % (40-75); PLATELET COUNT 114 X10e3 (140-420); RED BLOOD COUNT 3.51 X10e (3.90-5.30); WHITE BLOOD COUNT 5.4 X10e3 (4.0-10.5)
[2016-07-17 06:17] LABS: DIFF IND NO
[2016-07-17 06:24] LABS: INR 1.1; PROTHROMBIN TIME (PATIENT) 11.4 SECONDS (9.6-11.5)
[2016-07-17 08:18] LABS: ALBUMIN SERUM 3.1 g/dL (3.5-5.0); BILIRUBIN,TOTAL 0.5 mg/dL (0.2-2.0); BUN/CREATININE RATIO 23.33; CALCIUM SERUM 8.8 mg/dL (8.4-10.2); CREATININE SERUM 0.6 mg/dL (0.6-1.4); GLOM FILT RATE Estimated 115.6 mL/min (>60); POTASSIUM 3.9 mmol/L (3.5-5.1); PROTEIN TOTAL SERUM 6.5 g/dL (6.0-8.3)
[2016-07-18 06:12] LABS: HEMATOCRIT 30.7 % (35.0-45.0); HEMOGLOBIN 9.8 gm/dL (12.0-16.0); MEAN CELL VOLUME 103.5 FL (83-96); MEAN CORPUSCULAR HEMOGLOBIN 33.1 PG (28-34); MEAN CORPUSCULAR HGB CONC 31.9 g/dL (30-36); MEAN PLATELET VOLUME 10.3 FL (6.5-11.5); RED BLOOD COUNT 2.96 X10e (3.90-5.30); RED CELL DISTRIBUTION WIDTH 12.8 % (11.0-15.5); WHITE BLOOD COUNT 5.5 X10e3 (4.0-10.5)
[2016-07-18 06:34] LABS: CALCIUM SERUM 8.4 mg/dL (8.4-10.2); CREATININE SERUM 0.5 mg/dL (0.6-1.4); GLOM FILT RATE Estimated 122.8 mL/min (>60); POTASSIUM 4.2 mmol/L (3.5-5.1)
[2016-07-20] MEDS ORDERED: PAIN & FEVER325 MG PO (16:12)
[2016-07-20] MEDS ORDERED: LIPITOR20 MG PO (16:13)
[2016-07-20] MEDS ORDERED: ASPIRIN81 M2 PO (16:15)
[2016-07-20] MEDS ORDERED: TRAMADOL HCL50 M1 PO (16:16)
[2016-07-20] MEDS ORDERED: PROTONIX PO (16:19)
[2016-07-20] MEDS ORDERED: DOXYCYCLINE HY100 M3 PO (16:26)
== END 2016-07-20 20:10 | DRG 166 ==
LOC: CED 21:31 → C3A PCU 07-14 02:00 → CEDOF 07-14 02:00 → CICCU3 07-14 02:00 → CEDOF 07-14 02:30 → CED 07-14 02:30 → CEDOF 07-14 07:20 → CICCU3 07-14 08:42 → C3A PCU 07-16 13:53
PROVIDERS: Internal Medicine; Nurse Practitioner; Student in an Organized Health Care Education/Training Program
PROC: B410YZZ Fluoroscopy of Abdominal Aorta using Other Contrast (ICD-10-PCS; principal; 2016-07-17)
PROC: 047L3ZZ Dilation of Left Femoral Artery, Percutaneous Approach (ICD-10-PCS; 2016-07-17)
PROC: B41FYZZ Fluoroscopy of Right Lower Extremity Arteries using Other Contrast (ICD-10-PCS; 2016-07-17)
DX: J96.22 Acute and chronic respiratory failure with hypercapnia (principal); E43 Unspecified severe protein-calorie malnutrition; Z99.81 Dependence on supplemental oxygen; J44.1 Chronic obstructive pulmonary disease with (acute) exacerbation; L03.90 Cellulitis, unspecified; Z68.1 Body mass index [BMI] 19.9 or less, adult; I10 Essential (primary) hypertension; M06.9 Rheumatoid arthritis, unspecified; J96.21 Acute and chronic respiratory failure with hypoxia; I70.25 Atherosclerosis of native arteries of other extremities with ulceration; L97.529 Non-pressure chronic ulcer of other part of left foot with unspecified severity
CPT/HCPCS: 36415; 36600; 71010; 71250; 75625; 75710; 80048; 80053; 80202; 81003; 82553; 82803; 83880; 84484; 85025; 85027; 85610; 85730; 87070; 93005; 93923; 93970; 94640; 94660; 94664; 94760; 94761; 97116; 97163; 97166; 97530; 97535; 99285; C1725; C1760; C1894; G8978-GP; G8979-GP; G8987-GO; G8988-GO; G8989-GO; J0360; J0696; J1644; J2250; J2720; J2920; J3010; J3370; Q9967

== ENCOUNTER 2016-10-17 19:17 | Inpatient (IN) | payer MEDICARE, OTHER ==
[~2016-10-17] VITALS: Ht 152.4 cm; Wt 33.1 kg
--- NOTE | ~2016-10-17 | CR72 ---
[facility] A Service of [facility] & [facility] RADIOLOGY TEXT RESULTS PATIENT: TERESITA MONACO LOCATION: [address]16 : [birth year] UNIT #: [id number] AGE: [address]: Jameson Meyer MD SEX: F ORDER DR: [id number] [facility] [address] [facility]. [place], [place] [address] [id number] I MR#: [id number] Acc #: [id number] NAME: TERESITA MONACO : 1955 SEX: F STUDY DATE/TIME: 10/17/2016 20:58 UNIT: [facility] ROOM: [facility] STUDY DESCRIPTION: CR Chest Single View Portable Attending Physician: Jameson Meyer M.D. Ordering Physician: Ed Jose Roberto Cutler M.D. Primary Care Physician: No Primary Care Physician MEDICAL IMAGING REPORT This report is preliminary unless electronic signature is present EXAM Single view chest. INDICATION Shortness of air. Altered mental status. TECHNIQUE Single portable AP view of the chest compared to 07/15/2016. FINDINGS The heart and mediastinal contours are normal. There is background COPD. No new pulmonary opacities. No pneumothorax. IMPRESSION Background COPD. No new findings. Dictated by... Ham Alaniz M.D. THIS IS AN ELECTRONICALLY VERIFIED REPORT Ham Alaniz M.D. at 10/18/2016 7:51 PM NICOLE/joselyn TD: 10/18/2016 19:04 JOB #: [id number] MEDICAL IMAGING REPORT Page 1 of 1 COPY
--- NOTE | ~2016-10-17 | CO ---
Unit #: [id number] #: [id number] Patient: TERESITA MONACO [id number] [address] [place], [place] [address] [id number] I MR#: [id number] NAME: TERESITA MONACO ROOM: 550 Age: 61 Sex: F Admission Date: 10/17/2016 : 1955 Attending Physician: Hilario Gordon M.D. Consultation Date: 10/21/2016 CONSULTATION REPORT REASON FOR CONSULTATION Peripheral vascular disease. HISTORY OF PRESENT ILLNESS This is a 61-year-old female, who was admitted back on 10/17, with a 4-day history of a fall, and COPD exacerbation. She is known to me for having undergone a left superficial femoral artery angioplasty back on 07/17/2016 for a nonhealing ulcer of her first toe. She was subsequently seen by Dr. Gray in the office in August and was reportedly doing well. That procedure in July at that time, she was noted to have a left JIM of 0.69 of the PT, 0.3 of the left DP, with digital pressure of 58 and a toe index of 0.39. She has not had subsequent followup ankle-brachial indices. The patient currently believes that her breathing is doing better. Per the nurse, she is pending discharge likely tomorrow. The patient states that she believes that the wound has continued to heal, she denies any erythema or drainage or significant pain to the toe. She does not have any claudication symptoms when she walks. She does notes at night, she does have some intense pins and needle sensation along the dorsal aspect of her foot. PAST MEDICAL HISTORY Includes COPD, on home O2; hypertension; severe rheumatoid arthritis; peripheral vascular disease; and dyslipidemia. PAST SURGICAL HISTORY Includes history of C-spine surgery. ALLERGIES No known drug allergies. FAMILY HISTORY Denies any known bleeding disorders, clotting disorders, or aneurysms. SOCIAL HISTORY Former heavy smoker, but has quit 2 to 3 months ago, denies any alcohol or illicit drugs. MEDICATIONS Advair Diskus, albuterol, Tenormin, Lortab, Meloxicam, Spiriva, Ventolin, Lipitor, aspirin, Protonix, and tramadol. REVIEW OF SYSTEMS CONSTITUTIONAL: Denies any fevers or chills. Unit #: [id number] #: [id number] Patient: TERESITA MONACO ENT: Denies any ear pain or tinnitus. RESPIRATIONS: Positive for shortness of breath. Positive for cough. CARDIOVASCULAR: Denies any chest pain or palpitations. GI: Denies any nausea, vomiting, or diarrhea. : Denies any hematuria. HEME: Denies any easy bruising. ENDOCRINE: Denies any excessive thirst or hunger. MUSCULOSKELETAL: Denies any back pain. Positive for neck pain as described above in surgical history. INTEGUMENTARY: Denies any rash or pruritus. PHYSICAL EXAMINATION VITAL SIGNS: Temperature is 98.1, heart rate is 76, blood pressure is 140/74, respirations 15, and 98% on 4 L of O2. CONSTITUTIONAL: Appears older than stated age, eyes no scleral icterus. NECK: No JVD or carotid bruit. LYMPHATICS: No lymphadenopathy in neck or groins. CARDIOVASCULAR: Regular rate and rhythm. VASCULAR: Pulse exam; 2+ femoral pulses. Left DP multiphasic, PT triphasic; right DP and PT, monophasic. RESPIRATIONS: Nonlabored respirations. GI: Soft. Nontender. Nondistended. SKIN: Left first toe dorsal aspect ulceration roughly 5 x 2.5 cm, shallow, no erythema, no drainage, with granulating base. PSYCH: Normal mood and affect. DIAGNOSTIC STUDIES LABORATORY STUDIES: WBC 11.0, hematocrit 35.6, and platelets 124. Sodium 138, potassium 3.8, chloride 95, CO2 is 37, BUN 14, creatinine 0.4, glucose 188, estimated GFR is 131.2. Sputum culture is negative from 10/20. ASSESSMENT AND PLAN A 61-year-old female, with a history of left superficial femoral artery angioplasty on 07/2016 for nonhealing ulcer of the left first toe. I cannot recall exactly the nature of the wound when I had seen it two months ago, though according to the patient, it is improving in overall size. It does not appear infected at this time, I do not believe there is any evidence of osteomyelitis. On exam, the wound appears healthy, and she has very strong DP and PT signals. It would be nice to obtain postprocedural ankle-brachial indices, to reassess her ABIs if there is significant improvement, as well as toe pressures. I reviewed her imaging from 07/2016. Her primary issue was mid superficial femoral artery stenosis. Her anterior tibial artery appeared occluded or diminutive, and showed two-vessel runoff predominantly of her peroneal and her posterior tibial arteries, with pedal outflow. So I have ordered segmental pressures with ABIs. I have also put in wound care instructions to keep the wound moist, rather than a wet-to-dry, with bacitracin, Telfa pad, and Kerlix. I have also asked that she be referred to the [facility] for a followup and monitoring of her left first toe ulceration. Lastly, I have placed podiatry consult for evaluation of her toenails, which appear overgrown and are curling in. Based on her ankle-brachial indices, she likely should be able to heal any podiatric procedure required. She can follow up with me in the office in four weeks, if she is discharged, but we will follow her while she is inpatient. Unit #: [id number] #: [id number] Patient: TERESITA MONACO Dictated by... Sabrina Carney TD: 10/22/2016 07:14 JOB #: [id number] CONSULTATION REPORT Page 1 of 1 X X CONSULTATION REPORT
--- NOTE | ~2016-10-17 | US89 ---
[facility] A Service of [facility] RADIOLOGY TEXT RESULTS PATIENT: TERESITA MONACO LOCATION: [facility] : 57 UNIT #: [id number] AGE: [address]: Hilario Gordon MD SEX: F ORDER DR: [id number] [facility] [address] [facility]. [place], [place] [address] [id number] I MR#: [id number] Acc #: [id number] NAME: TERESITA MONACO : 1955 SEX: F STUDY DATE/TIME: 10/21/2016 13:35 UNIT: [facility] ROOM: [facility] STUDY DESCRIPTION: US Lower Ext Arterial Exam Attending Physician: Hilario Gordon M.D. Ordering Physician: Ahs Cutler M.D. Primary Care Physician: No Primary Care Physician MEDICAL IMAGING REPORT This report is preliminary unless electronic signature is present EXAM Lower extremity arterial segmental pressures. DATE OF EXAMINATION 10/21/2016 HISTORY Claudication. FINDINGS The right brachial pressure is 159. The left brachial pressure was not measured. The right upper thigh pressure is 147, lower thigh 130, calf 109, dorsalis pedis 109, posterior tibial 110, and toe 67 for an ghpjr-ol-oavdmbis index of 0.69. Left upper thigh pressure is 168, lower thigh 151, calf 133, and dorsalis pedis 139, posterior tibial 139, and toe 85, for an tlisr-bi-tqprpbeh index of 0.87. Pulse volume recording tracings demonstrate dampening of the amplitude of the signal at the calf and ankle level on both sides. Doppler waveform analysis indicates a monophasic signal in the posterior tibial and dorsalis pedis arteries bilaterally. IMPRESSION Moderate ischemia of the right leg with an ekmku-mu-xflaerjb index of 0.69. There appears to be multilevel arterial occlusive disease involving the right leg. Mild ischemia of the left leg with an vabrs-vx-omhazpkn index of 0.87. There appears to be primarily tibial artery occlusive [facility] A Service [facility] RADIOLOGY TEXT RESULTS PATIENT: TERESITA MONACO LOCATION: [facility] : [birth year] UNIT #: [id number] AGE: [address]: Hilario Gordon MD SEX: F ORDER DR: disease involving the left leg. Dictated by... Meliton Lopez M.D. THIS IS AN ELECTRONICALLY VERIFIED REPORT Meliton Lopez M.D. at 10/22/2016 7:31 AM MARISABEL/jesus TD: 10/22/2016 00:00 JOB #: [id number] MEDICAL IMAGING REPORT Page 1 of 1 COPY
--- NOTE | ~2016-10-17 | CR72 ---
[facility] A Service of [facility] & [facility] RADIOLOGY TEXT RESULTS PATIENT: TERESITA MONACO LOCATION: [facility] 550- : [birth year] UNIT #: [id number] AGE: [address]: Hilario Gordon MD SEX: F ORDER DR: [id number] [facility] [address] [facility]. [place], [place] [address] [id number] I MR#: [id number] Acc #: [id number] NAME: TERESITA MONACO : 1955 SEX: F STUDY DATE/TIME: 10/19/2016 6:01 UNIT: [facility] ROOM: [facility] STUDY DESCRIPTION: CR Chest Single View Portable Attending Physician: Jameson Meyer M.D. Ordering Physician: Rosalee Licea M.D. Primary Care Physician: No Primary Care Physician MEDICAL IMAGING REPORT This report is preliminary unless electronic signature is present EXAM Portable chest HISTORY Respiratory failure, COPD exacerbation beginning 2 days ago, October 17. COMPARISON 10/17/2016 FINDINGS Portable view of the chest demonstrates marked pulmonary hyperinflation and hyperlucency compatible with underlying emphysema. No acute airspace disease or consolidation. No effusions. Heart and mediastinum unremarkable. AP window calcifications noted compatible with granulomatous disease. Calcifications seen over the left shoulder lateral to the greater tuberosity. May represent a component of calcific bursitis. No pneumothorax. Dictated by... Ariel Baldwin M.D. THIS IS AN ELECTRONICALLY VERIFIED REPORT Ariel Baldwin M.D. at 10/19/2016 4:47 PM DANIELA/sloan TD: 10/19/2016 08:27 JOB #: [id number] MEDICAL IMAGING REPORT Page 1 of 1 COPY
--- NOTE | ~2016-10-17 | HP ---
Unit #: [id number] #: [id number] Patient: TERESITA MONACO [id number] [address] [place], [place] [address] [id number] I MR#: [id number] NAME: TERESITA MONACO ROOM: [facility] Age: 61 Sex: F Admission Date: 10/17/2016 : 1955 Attending Physician: Jameson Meyer M.D. HISTORY AND PHYSICAL CHIEF COMPLAINT She said that while going to the restroom she stumbled in the bathroom and hit her forehead on the wall. HISTORY OF PRESENT ILLNESS This is a 61-year-old female with a past medical history of COPD, home oxygen dependent, hypertension, severe rheumatoid arthritis, peripheral vascular disease, status post left superficial femoral artery stent and angioplasty, small hiatal hernia, GERD, dyslipidemia, and history of left foot ulcer, brought to the emergency room with the chief complaint that she was going to the bathroom when she stumbled and hit her forehead on the wall. On further workup, she is having chronic shortness of breath. On workup in the ER, she was found to be with oxygen saturation of 97% on four liters, but eventually, on ABG she was found to be hypercapnic with CO2 of 93.7 and is being placed on BiPAP. She is currently on BiPAP. She is able to talk with me. (1) she is a very poor historian. She says she has been having some shortness of breath, but she denies cough and wheezing. PAST MEDICAL HISTORY 1. Chronic obstructive pulmonary disease, home oxygen dependent. 2. Hypertension. 3. Severe rheumatoid arthritis. 4. Esophageal meat impaction requiring EGD in 2010 which showed a small hiatal hernia and mild gastritis. 5. Peripheral vascular disease, status post left superficial femoral artery angioplasty on July 17, 2016. 6. Dyslipidemia. 7. Left foot ulcer. PAST SURGICAL HISTORY History of C-spine surgery. ALLERGIES No known drug allergies. FAMILY HISTORY Noncontributory. SOCIAL HISTORY She used to smoke and used to be a heavy smoker, but she said she quit two to three months ago. She does not drink alcohol. MEDICATIONS Unit #: [id number] #: [id number] Patient: TERESITA MONACO The nurse is currently calling the pharmacy to find the medications. Previous home medications were as follows: Advair Diskus 250/50, albuterol, Tenormin, Lortab, meloxicam, Spiriva, Ventolin, Lipitor, aspirin, Protonix, and tramadol. REVIEW OF SYSTEMS Negative except as in History of Present Illness. She is currently on BiPAP. PHYSICAL EXAMINATION GENERAL: A 61-year-old, very fragile lady who looks older than her age. CURRENT VITAL SIGNS: Temperature 98.1, heart rate 86, respiratory rate 16, and blood pressure 160/92. HEENT: Pupils equally reactive to light and accommodation. NECK: Supple. No JVD, no thyromegaly. LUNGS: Decreased air entry bilaterally with no rhonchi and no wheezing. HEART: S1 and S2, regular rate and rhythm. ABDOMEN: Soft, nontender, and nondistended. Bowel sounds positive. EXTREMITIES: No cyanosis, no clubbing, no edema. There are chronic changes on the feet. The toenails are big and curled. There is a positive chronic ulcer on the left great toe which seems to be chronic. Diminished pulses also. NEUROLOGIC: She is alert and awake. She is currently on BiPAP. Moving extremities. DIAGNOSTIC STUDIES LABORATORY: BNP is 62. Troponin less than 0.05. Sodium 142, potassium 4, chloride 92, CO2 of 44, glucose 100, BUN 9, and creatinine 0.4. ABG with pH of 7.312, O2 of 96, and CO2 of 93.7. ABG was done on 3 liters of oxygen. White count 3, hemoglobin 11, hematocrit 36, and platelets 150,000. IMAGING: Chest x-ray shows no infiltrate. CT head is pending at the time of dictation. ASSESSMENT AND PLAN 1. Acute hypercapnic respiratory failure. Continue BiPAP and to the ICU while on BiPAP. Ask Dr. Licea to evaluate. 2. Acute exacerbation of chronic obstructive pulmonary disease, oxygen dependent. Place on IV Solu-Medrol, DuoNebs, and IV Levaquin. 3. History of hypertension. 4. History of severe rheumatoid arthritis. 5. History of peripheral vascular disease with left superficial femoral artery angioplasty on July 17, 2016. 6. History of dyslipidemia. 7. History of small hiatal hernia/gastritis. 8. History of left foot ulcer. 9. Deep venous thrombosis prophylaxis. Will place the patient on Lovenox 30 mg subcutaneous daily. 1. Dictated by Sabrina Thorpe TD: 10/18/2016 15:22 JOB #: [id number] Unit #: [id number] #: [id number] Patient: TERESITA MONACO HISTORY AND PHYSICAL Page 1 of 1 X X HISTORY AND PHYSICAL
--- NOTE | ~2016-10-17 | CO ---
Unit #: [id number] #: [id number] Patient: TERESITA MONACO [id number] [address] [place], [place] [address] [id number] I MR#: [id number] NAME: TERESITA MONACO ROOM: [facility] Age: 61 Sex: F Admission Date: 10/17/2016 : 1955 Attending Physician: Jameson Meyer M.D. Primary Care Physician: Primary Care Physician No CONSULTATION REPORT REASON FOR CONSULTATION Critical care management. CHIEF COMPLAINT Shortness of breath. HISTORY OF PRESENT ILLNESS Edwqo-freg-aqa female with past medical history of rheumatoid arthritis, COPD on home oxygen, chronic respiratory failure who presents with the complaint of shortness of breath, increasing sputum production for last jbf-mo-vguvh days, symptoms getting worse, was found to be in acute hypoxic hypercapnic respiratory failure, started on BiPAP, currently on BiPAP, has been doing well, resting well, denies any headache, blurry vision, or chest pain. REVIEW OF SYSTEMS Positive for pallor. No edema, no cyanosis, and no jaundice. The rest is per history of present illness. The rest of a twelve point review of systems has been reviewed and is negative. PAST MEDICAL HISTORY 1. COPD. 2. Hypertension. 3. C spine surgery. 4. Rheumatoid arthritis. ALLERGIES No known drug allergies. MEDICATIONS 1. Advair 2. Albuterol 3. Keflex 4. Bactrim 5. Norvasc 6. Spiriva FAMILY HISTORY None. PHYSICAL EXAMINATION VITAL SIGNS: Temperature 98, pulse 87, respiration 12, and blood pressure 130/70. NEUROLOGIC: Awake, alert, and oriented. No neurologic deficit. Unit #: [id number] #: [id number] Patient: TERESITA MONACO HEENT: PERRLA. NECK: Supple. No jugular venous distention. CHEST: Bilateral air entry. Bilateral mild rhonchi. GI: Soft. Bowel sounds are positive. EXTREMITIES: No edema. Positive wound on the left lower extremity and dorsum of the foot. SKIN: No rash. LYMPHATICS: No lymphadenopathy. DIAGNOSTIC STUDIES LABORATORY: BUN 10, creatinine 0.6, sodium 140, potassium is 4.1. Her white count is 3, hemoglobin 12, hematocrit 37, platelet count is 151. IMAGING: Chest x-ray reviewed. ASSESSMENT AND PLAN 1. Acute hypoxic hypercapnic respiratory failure. 2. Acute exacerbation of COPD. 3. Acute bronchitis. 4. Left lower extremity wound. Plan is to continue BiPAP support and continue oxygen, bronchodilator, and GI/DVT prophylaxis, and sputum cultures. The patient will be closely monitored, wound care will be consulted. Please see orders for detailed plan, ICU protocol. Thank you very much for this consultation. Dictated by... Sabrina Mcduffie TD: 10/18/2016 10:27 JOB #: [id number] CONSULTATION REPORT Page 1 of 1 X Rosalee Licea MD X CONSULTATION REPORT
--- NOTE | ~2016-10-17 | DS ---
Unit #: [id number] #: [id number] Patient: TERESITA MONACO [id number] [address] [place], [place] [address] [id number] I MR#: [id number] NAME: TERESITA MONACO ROOM: 550 Age: 61 Sex: F Admission Date: 10/17/2016 : 1955 Discharge Date: 10/22/2016 Attending Physician: Hilario Gordon M.D. Primary Care Physician: No Primary Care Physician DISCHARGE SUMMARY REASON FOR ADMISSION Status post fall at home. HISTORY OF PRESENT ILLNESS/HOSPITAL COURSE A 61-year-old female with underlying history of COPD, home O2 dependent with questionable compliance, hypertension, rheumatoid arthritis, severe peripheral vascular disease with ulcer present on left lower extremity, prior history of left superficial femoral artery stent placement who presented secondary to fall at home. Please refer to H and P for complete details. She was admitted and subsequently she was noted to have poor respiratory status and she was initially treated as COPD exacerbation. Consultation was placed to Dr. Licea and associates for evaluation. She was placed on IV antibiotics as well as routine aerosols. She showed improvement in overall breathing. She has reverted back to her home O2, anywhere between 2 to 4 L at baseline with questionable compliance at best. In regard to her nonhealing wound as well as her recent left superficial femoral artery angioplasty that she had done, vascular consultation was obtained. They felt as though perfusion was adequate after lower extremity arterial Dopplers were performed. Outpatient followup at the wound care clinic at [facility] was recommended. In regard to her overall long-term well being, her COPD is fairly advanced. Her compliance is questionable. Her prognosis at this point is guarded at best. She is clinically stable for discharge, has been cleared by services for the same. She does require outpatient podiatry evaluation secondary to toenail evaluation trimming as well as a routine followup. FINAL DISCHARGE DIAGNOSES 1. Status post fall at home, likely polypharmacy as well as vasovagal syncope. 2. Acute on chronic respiratory failure. 3. Chronic obstructive pulmonary disease exacerbation. 4. End-stage chronic obstructive pulmonary disease, home O2 dependent. 5. Hypertension. 6. Severe rheumatoid arthritis. 7. Likely mild dementia. 8. Hyperlipidemia. 9. Peripheral vascular disease with recent left superficial femoral artery angioplasty in July 2016. 10. Chronic left foot ulcer. FINAL DISCHARGE MEDICATIONS Unit #: [id number] #: [id number] Patient: TERESITA MONACO 1. Albuterol nebulized solution q.6 p.r.n. 2. Advair 250/50 one puff b.i.d. 3. Tylenol 650 mg p.o. q.6 p.r.n. 4. Spiriva one inhalation daily. 5. Tenormin 25 mg p.o. daily. 6. Lipitor 20 mg p.o. nightly. 7. Aspirin 81 mg daily. 8. [place] 10/325 one tablet p.o. q.4 p.r.n. home medication. 9. Baclofen 10 mg p.o. q.8 p.r.n. spasms. 10. Doxycycline 100 mg p.o. b.i.d. x5 days. 11. Prednisone 40 mg p.o. daily x5 days. DISCHARGE CONDITION Stable. DISCHARGE DISPOSITION Home. FOLLOWUP 1. Followup PCP 7-10 days. 2. Followup [facility], two weeks. 3. Followup Dr. Gray, two weeks. PROGNOSIS Long-term prognosis guarded. Chance of readmission significantly elevated. Dictated by... Sabrina Ramirez/hua TD: 10/23/2016 11:29 JOB #: [id number] DISCHARGE SUMMARY Page 1 of 1 X Hilario Gordon MD X DISCHARGE SUMMARY
--- NOTE | ~2016-10-17 | CT71 ---
[facility] A Service of [facility] RADIOLOGY TEXT RESULTS PATIENT: TERESITA MONACO LOCATION: [address] : [birth year] UNIT #: [id number] AGE: [address]: Jameson Meeyr MD SEX: F ORDER DR: [id number] [facility] [address] [facility]. [place], [place] [address] [id number] I MR#: [id number] Acc #: [id number] NAME: TERESITA MONACO : 1955 SEX: F STUDY DATE/TIME: 10/17/2016 22:14 UNIT: [facility] ROOM: [facility] STUDY DESCRIPTION: CT Head Wo Contrast Attending Physician: Jameson Meyer M.D. Ordering Physician: Ash Cutler M.D. Primary Care Physician: Primary Care Physician No MEDICAL IMAGING REPORT This report is preliminary unless electronic signature is present EXAM Head CT 10/17 at 22:14 INDICATIONS Patient walked into a wall and hit head today. Unsteady gait and lethargy since that time. FINDINGS Axial images were obtained from the base to the vertex without contrast. No comparison. This CT exam was performed with one or more of the following radiation dose reduction techniques: Automatic exposure control, adjustment of mA and/or kV according to patient size, and iterative reconstruction. The study is repeated due to excessive motion but remains degraded due to excessive motion. No skull fracture. No definite acute hemorrhage. No mass or acute infarct. Ventricular size and configuration are normal. IMPRESSION The exam is quite degraded by excessive motion. No definite acute findings. Dictated by... Brennon Cardenas Jr., M.D. THIS IS AN ELECTRONICALLY VERIFIED REPORT Brennon Cardenas Jr., M.D. at 10/19/2016 3:12 AM KALEB/kimani TD: 10/18/2016 19:42 JOB #: [id number] [facility] A Service [facility] RADIOLOGY TEXT RESULTS PATIENT: TERESITA MONACO [address]ATION: [address] : [birth year] UNIT #: [id number] AGE: [address]: Jameson Meyer MD SEX: F ORDER DR: MEDICAL IMAGING REPORT Page 1 of 1 COPY
--- NOTE | ~2016-10-17 | MAL ---
[facility] Nutrition Therapy DATE: 10/19/16 Patient: TERESITA MONACO Physician: ELYSSA Address: [address] [facility] Room/Bed: [address] [place] [address], Zip: [place] [address] Admit Date: 10/17/16 Date of : 57 Height: 5 0 Weight: 72 33 PHYSICAL MALNUTRITION ASSESSMENT Energy Intake, Chronic Illness Severely reduced: </=50% needs for >/=1 month Energy Intake Comment: Based on nutrition interview, pt reports early satiety with meals and <50% intake of meals for prolonged period of time. Weight Loss, Chronic Illness Severe: >20% past 1 year Weight Loss, Comment: Pt has lost 34% of her body weight in ~2 years. Pt reportedly used to weigh 110# in 2014 and now weighs 73#. Physical Findings Body Fat and Muscle Mass Severe: (obvious) significant muscle wasting and/or loss of subcutaneous fat Physical Findings Functional Capacity Moderate: (suggested) reduced functional capacity Physical Findings Comment: Protruding clavicle, rib and shoulder bones with no muscle definition. Malnutrition Survey Results: Malnutrition identified Malnutrition Etiology Summary: Chronic illness severe Malnutrition Survey Comment: See full RD nutrition assessment. Respectfully, CHAPIS AGUILAR, REYNALDO, LD [facility] cc: client file
--- NOTE | ~2016-10-17 | EKG ---
PATIENT: TERESITA MONACO UNIT #: [id number] Ventricular Rate: 88 BPM Atrial Rate: 88 BPM P-R Interval: 150 ms QRS Duration: 84 ms Q-T Interval: 346 ms QTC Calculation(Bezet): 418 ms P [place]: 84 degrees Calculated R [place]: 93 degrees Calculated T [place]: 86 degrees Diagnosis Line: Normal sinus rhythm Diagnosis Line: Rightward axis Diagnosis Line: Septal infarct (cited on or before 17-OCT-2016) Diagnosis Line: Abnormal ECG Diagnosis Line: When compared with ECG of 13-JUL-2016 22:45, Diagnosis Line: Previous ECG has undetermined rhythm, needs review Diagnosis Line: ST no longer depressed in Inferior leads Diagnosis Line: Confirmed by AMANDA DE LA GARZA MD ([id number]) on 10/18/2016 Diagnosis Line: 3:09:12 PM INTERPRETING MD: HOLLI GONZALEZ
--- NOTE | ~2016-10-17 | A ---
[facility] Nutrition Therapy DATE: 10/19/16 Patient: TERESITA MONACO Physician: ELYSSA Address: [address] [facility] [address] Room/Bed: [address] [place] [address], Zip: [place] [address] Admit Date: 10/17/16 Date of : 57 Height: 5 0 Weight: 72 33 NUTRITIONAL ASSESSMENT: REASON: Low BMI, 2 points nutrition screen RE: Wound and eating poorly 61 yo female admitted for respiratory distress PMH: COPD, HTN, GERD, RA, PVD, s/p left femoral artery stent, left foot ulcer, dyslipidemia, hernia Anthropometrics: Ht: 5'2" Wt: 33 kg BMI: 13.3 Labs: Cl- 95 Gluc 154 Creat 0.5 Alb 3.2 Meds: Lipitor, protonix, solu-medrol I/O & Bowel function: 920/1303, last BM 10/19 Skin Integrity: Left foot wound Dry flakey skin No edema noted Estimated Nutrition Needs: Increased due to low body weight, PMH Diet: Heart healthy Assessment: Chart reviewed, events noted. 61 yo female admitted for respiratory failure. Pt has had recent previous admissions for respiratory distress with left food wound noted. Per previous admission RD assessments, the pt is clinically underweight. It appears that the pt's weight has remained ~71-73# since her previous admission in July 2016. RD spoke with the pt at bedside today. Pt appears very thin and frail with protruding bones and no muscle definition. Pt reports that she is very hungry, has a good appetite at this time but does not like the hospital food without seasoning. Pt attributes a decline in weight to her arthritis and loss of bone density, stating that she weighed 110# about [address] stressed the importance of adequate nutritional intake to the pt. She agreed that she needs to gain weight. RD provided diet education on ways to increase kcal and protein intake, such as consuming smaller, more frequent meals. RD encouraged the pt to consume Ensure BID at the hospital, and to continue this at home as tolerated. Pt reports that Ensure causes her to have diarrhea at times. RD provided other supplement recommendations, and the pt is agreeable to trying Magic Cup, RD will order. Dx: Severe protein-calorie malnutrition RT PMH, early satiety AEB BMI 13.3, 66% IBW, 34% body weight loss in 2 years, appears frail and thin, protruding bones and no muscle [facility] Nutrition Therapy DATE: 10/19/16 Patient: TERESITA MONACO Physician: ELYSSA Address: [address] [facility] [address] [address] Room/Bed: [address] [place] [address], Zip: [place] [address] Admit Date: 10/17/16 Date of : 57 Height: 5 0 Weight: 72 33 definition. Intervention: 1. Liberalize to regular diet + 6 small meals 2. Ensure BID 3. Magic Cup BID Monitoring, Evaluation and Goals: 1. Oral intake; tolerate 50-100% of meals and supplements 2. Improve labs; glucose 3. Weight; promote weight gain, prevent weight loss 4. Skin; promote healing Recommendations: 1. Liberalize to regular diet + 6 small meals to promote weight gain and adequate PO intake. 2. Ensure BID (strawberry) and Magic Cup BID (chocolate) for supplemental nutrition. 3. Encourage adequate nutritional intake as needed. 4. Optimize the pt's bowel regimen d/t irregular BMs reported by the pt. Pt is at moderate nutritional risk. RD will follow up per protocol. Respectfully, CHAPIS AGUILAR RD, LD Food and Nutritional Services [facility] cc: client file
[~2016-10-17 19:17] MED LIST changes: +ADVAIR 250-501 EAC1 INH; +ALBUTEROL17 GM INH; +ALBUTEROL2.5 MG/3 M INH; +ALEVE220 M1 PO; +ASPIRIN81 M2 PO; +DOXYCYCLINE HY100 M3 PO; +KEFLEX500 MG PO; +LIORESAL10 MG PO; +LIPITOR20 MG PO; +LORTAB 10-3251 EACH PO; +MELOXICAM7.5 MG PO; +PAIN & FEVER325 MG PO; +PROTONIX PO; +SPIRIVA18 MCG INH; +SULFAMETHOXAZO1 EAC1 PO; +TENORMIN25 MG PO; +TRAMADOL HCL50 M1 PO
[2016-10-17 21:05] LABS: BASOPHIL% 0.7 % (0-2.5); EOSINOPHIL% 1.2 % (0.0-7.0); HEMATOCRIT 36.2 % (35.0-45.0); HEMOGLOBIN 11.3 gm/dL (12.0-16.0); LYMPHOCYTE# 0.6 X10e3 (1.0-3.5); LYMPHOCYTE% 19.1 % (17.0-45.0); MEAN CORPUSCULAR HEMOGLOBIN 30.9 PG (28-34); MEAN CORPUSCULAR HGB CONC 31.3 g/dL (30-36); MEAN PLATELET VOLUME 8.7 FL (6.5-11.5); MONOCYTE# 0.3 X10e3 (0-1.0); MONOCYTE% 11.7 % (3.0-12.0); NEUTROPHIL% 67.3 % (40-75); PLATELET COUNT 150 X10e3 (140-420); RED BLOOD COUNT 3.66 X10e (3.90-5.30); RED CELL DISTRIBUTION WIDTH 12.1 % (11.0-15.5)
[2016-10-17 21:08] LABS: DIFF IND NO
[2016-10-17 21:21] LABS: ARTERIAL BLD GAS O2 SATURATION 95.6 % (90.0-100.0); ARTERIAL BLOOD GAS CARBOXY HB 0.6 %sat (0.0-9.0); ARTERIAL BLOOD GAS HCO3 47.3 mmol/L; ARTERIAL BLOOD GAS MET HB 1.5 %sat (0.0-2.0); ARTERIAL BLOOD GAS PO2 96.6 mmHg (80.0-100); ARTERIAL BLOOD GAS pH 7.312 (7.350-7.450)
[2016-10-17 21:22] LABS: ARTERIAL BLOOD GAS ALLEN TEST NORMAL; ARTERIAL BLOOD GAS ART SITE RIGHT RADIAL; ARTERIAL BLOOD GAS DELIVERY NASAL CANNULA; ARTERIAL BLOOD GAS LITER FLOW 3.5; ARTERIAL BLOOD GAS PCO2 93.7 mmHg (35.0-45.0); ARTERIAL DRAW? YES
[2016-10-17 21:41] LABS: BUN/CREATININE RATIO 22.5; CALCIUM SERUM 9.1 mg/dL (8.4-10.2); CREATININE SERUM 0.4 mg/dL (0.6-1.4); GLOM FILT RATE Estimated 131.2 mL/min (>60)
[2016-10-17 21:45] LABS: POC - CKMB 3.3 ng/mL (0.0-7.9); POC - TROPONIN <0.05 ng/mL (<=0.05)
[2016-10-17 23:25] LABS: ARTERIAL BLD GAS O2 SATURATION 94.5 % (90.0-100.0); ARTERIAL BLOOD GAS CARBOXY HB 0.7 %sat (0.0-9.0); ARTERIAL BLOOD GAS HCO3 46.8 mmol/L; ARTERIAL BLOOD GAS MET HB 1.5 %sat (0.0-2.0); ARTERIAL BLOOD GAS pH 7.388 (7.350-7.450)
[2016-10-17 23:27] LABS: ARTERIAL BLOOD GAS ART SITE RIGHT BRACHIAL; ARTERIAL BLOOD GAS PCO2 77.7 mmHg (35.0-45.0); ARTERIAL BLOOD GAS PO2 78.1 mmHg (80.0-100); ARTERIAL DRAW? YES
[2016-10-18 01:43] LABS: BUN/CREATININE RATIO 16.66; CALCIUM SERUM 9.2 mg/dL (8.4-10.2); CREATININE SERUM 0.6 mg/dL (0.6-1.4); GLOM FILT RATE Estimated 114.8 mL/min (>60); POTASSIUM 4.1 mmol/L (3.5-5.1)
[2016-10-18 04:54] LABS: BASOPHIL% 0.3 % (0-2.5); HEMATOCRIT 37.9 % (35.0-45.0); HEMOGLOBIN 12.1 gm/dL (12.0-16.0); LYMPHOCYTE# 0.3 X10e3 (1.0-3.5); LYMPHOCYTE% 8.3 % (17.0-45.0); MEAN CELL VOLUME 97.7 FL (83-96); MEAN CORPUSCULAR HEMOGLOBIN 31.1 PG (28-34); MEAN CORPUSCULAR HGB CONC 31.9 g/dL (30-36); MEAN PLATELET VOLUME 9.3 FL (6.5-11.5); MONOCYTE% 1.1 % (3.0-12.0); NEUTROPHIL% 90.3 % (40-75); PLATELET COUNT 151 X10e3 (140-420); RED BLOOD COUNT 3.88 X10e (3.90-5.30); WHITE BLOOD COUNT 3.3 X10e3 (4.0-10.5)
[2016-10-18 04:56] LABS: DIFF IND NO
[2016-10-19 03:56] LABS: ARTERIAL BLD GAS O2 SATURATION 98.1 % (90.0-100.0); ARTERIAL BLOOD GAS CARBOXY HB 0.1 %sat (0.0-9.0); ARTERIAL BLOOD GAS HCO3 41.9 mmol/L; ARTERIAL BLOOD GAS MET HB 0.8 %sat (0.0-2.0); ARTERIAL BLOOD GAS pH 7.416 (7.350-7.450)
[2016-10-19 03:59] LABS: ARTERIAL BLOOD GAS ALLEN TEST NORMAL; ARTERIAL BLOOD GAS ART SITE RIGHT RADIAL; ARTERIAL BLOOD GAS PCO2 65.3 mmHg (35.0-45.0); ARTERIAL DRAW? YES
[2016-10-19 05:31] LABS: BASOPHIL% 0.1 % (0-2.5); HEMATOCRIT 36.7 % (35.0-45.0); HEMOGLOBIN 11.8 gm/dL (12.0-16.0); LYMPHOCYTE# 0.3 X10e3 (1.0-3.5); LYMPHOCYTE% 9.5 % (17.0-45.0); MEAN CELL VOLUME 96.5 FL (83-96); MEAN CORPUSCULAR HEMOGLOBIN 31.2 PG (28-34); MEAN CORPUSCULAR HGB CONC 32.3 g/dL (30-36); MEAN PLATELET VOLUME 9.4 FL (6.5-11.5); MONOCYTE# 0.1 X10e3 (0-1.0); MONOCYTE% 2.5 % (3.0-12.0); NEUTROPHIL# 2.8 X10e3 (1.5-7.1); NEUTROPHIL% 87.9 % (40-75); PLATELET COUNT 155 X10e3 (140-420); RED CELL DISTRIBUTION WIDTH 12.4 % (11.0-15.5); WHITE BLOOD COUNT 3.2 X10e3 (4.0-10.5)
[2016-10-19 05:32] LABS: DIFF IND NO
[2016-10-19 06:06] LABS: ALBUMIN SERUM 3.2 g/dL (3.5-5.0); BILIRUBIN,TOTAL 0.3 mg/dL (0.2-2.0); CALCIUM SERUM 9.2 mg/dL (8.4-10.2); CREATININE SERUM 0.5 mg/dL (0.6-1.4); GLOM FILT RATE Estimated 121.9 mL/min (>60); POTASSIUM 3.7 mmol/L (3.5-5.1)
[2016-10-21 05:45] LABS: HEMATOCRIT 35.6 % (35.0-45.0); HEMOGLOBIN 11.3 gm/dL (12.0-16.0); MEAN CORPUSCULAR HGB CONC 31.6 g/dL (30-36); MEAN PLATELET VOLUME 9.6 FL (6.5-11.5); RED BLOOD COUNT 3.63 X10e (3.90-5.30); RED CELL DISTRIBUTION WIDTH 12.7 % (11.0-15.5)
[2016-10-21 06:18] LABS: CREATININE SERUM 0.4 mg/dL (0.6-1.4); GLOM FILT RATE Estimated 131.2 mL/min (>60); POTASSIUM 3.8 mmol/L (3.5-5.1)
[2016-10-22 06:23] LABS: HEMATOCRIT 36.2 % (35.0-45.0); HEMOGLOBIN 11.7 gm/dL (12.0-16.0); MEAN CELL VOLUME 96.5 FL (83-96); MEAN CORPUSCULAR HEMOGLOBIN 31.3 PG (28-34); MEAN CORPUSCULAR HGB CONC 32.5 g/dL (30-36); MEAN PLATELET VOLUME 9.7 FL (6.5-11.5); RED BLOOD COUNT 3.75 X10e (3.90-5.30); RED CELL DISTRIBUTION WIDTH 12.5 % (11.0-15.5); WHITE BLOOD COUNT 7.5 X10e3 (4.0-10.5)
[2016-10-22 07:30] LABS: CALCIUM SERUM 8.8 mg/dL (8.4-10.2); CREATININE SERUM 0.5 mg/dL (0.6-1.4); GLOM FILT RATE Estimated 121.9 mL/min (>60); POTASSIUM 3.5 mmol/L (3.5-5.1)
[2016-10-22] MEDS ORDERED: ALBUTEROL 0.5ML INH (15:11)
[2016-10-22] MEDS ORDERED: PREDNISONE PO (15:13)
[2016-10-22] MEDS ORDERED: DOXYCYCLINE HY100 M4 PO (15:16)
== END 2016-10-22 19:36 | disposition home or self-care (01) | DRG 189 ==
LOC: CED 19:17 → CEDOF 22:45 → CED 23:21 → CICCU3 10-18 08:10 → CEDOF 10-18 08:10 → C5B 10-19 11:17
PROVIDERS: Emergency Medicine; Family Medicine; Internal Medicine
DX: J96.21 Acute and chronic respiratory failure with hypoxia (principal); E43 Unspecified severe protein-calorie malnutrition; F03.90 Unspecified dementia, unspecified severity, without behavioral disturbance, psychotic disturbance, mood disturbance, and anxiety; Z68.1 Body mass index [BMI] 19.9 or less, adult; J44.1 Chronic obstructive pulmonary disease with (acute) exacerbation; J44.0 Chronic obstructive pulmonary disease with (acute) lower respiratory infection; J96.22 Acute and chronic respiratory failure with hypercapnia; Z99.81 Dependence on supplemental oxygen; I10 Essential (primary) hypertension; M06.9 Rheumatoid arthritis, unspecified; I73.9 Peripheral vascular disease, unspecified; E78.5 Hyperlipidemia, unspecified; Z87.891 Personal history of nicotine dependence; L97.529 Non-pressure chronic ulcer of other part of left foot with unspecified severity; R62.7 Adult failure to thrive; J20.9 Acute bronchitis, unspecified; W01.0XXA Fall on same level from slipping, tripping and stumbling without subsequent striking against object, initial encounter; Y92.012 Bathroom of single-family (private) house as the place of occurrence of the external cause; Z98.62 Peripheral vascular angioplasty status; D64.9 Anemia, unspecified
CPT/HCPCS: 36415; 36600; 70450; 71010; 80048; 80053; 82553; 82803; 83880; 84484; 85025; 85027; 87070; 87205; 93005; 93923; 94640; 94660; 94664; 94760; 94761; 96374; 96375; 97110; 97116; 97162; 97166; 97535; 99285; G8978-GP; G8979-GP; G8987-GO; G8988-GO; G8989-GO; J0360; J0456; J1650; J1956; J2920; J2930